=== PATIENT | female | born 1980 | race Caucasian/White ===

== ENCOUNTER → 2020-06-27 | Day surgery (SDC) | payer OTHER ==
[~2020-06-27] MED LIST: ACCUPRIL 5MG TAB5 MG PO; ACID REDUCER20 MG PO; ADMELOG100 UNIT/1 SC; ATARAX25 MG PO; BUSPIRONE HCL15 MG PO; DIPHENHYDR IV; GABAPENTIN800 MG PO; KCL 20 MEQ20 MEQ/101 IV; LOVAZA1 GM PO; ONDANSETRON ODT4 MG IV; PHENERGAN25 M1 IV; PRILOSEC20 MG PO; PROZAC20 MG PO; TRAZODONE 100M100 MG PO; TRESIBA100 UNIT/1 SC; VICTOZA 2-0.6 MG/0.1 IJ; WELLBUTRIN XL150 MG PO; [UNRECOGNIZED DRUG - OTHER] IV
[2020-06-27 08:31] LABS: BASOPHIL 0.4 % (0-2); EOSINOPHIL 1.5 % (0-5); HCT 32.6 % (37.0-47.0); HGB 10.6 g/dl (12.5-16.0); LYMPHOCYTE 29.1 % (15-48); MCH 26.8 pg (25.0-31.0); MCHC 32.5 g/dL (32.0-36.0); MCV 82.5 fL (78.0-100.0); MONOCYTE 7.2 % (0-12); MPV 10.2 fL (6.0-9.5); NEUTROPHIL 61.4 % (41-80); NRBC 0; PLT 298 K/uL (150-400); RBC 3.95 M/uL (4.20-5.40); WBC 9.4 K/uL (4.0-10.5)
[2020-06-27 15:56] LABS: BUN/CREAT RATIO (CALC) 18.6 RATIO; CREATININE 0.59 mg/dL (0.51-0.95)
== END | disposition home or self-care (01) ==
LOC: FAS 07:35
PROVIDERS: Anesthesiology; Oral & Maxillofacial Surgery
DX: K02.63 Dental caries on smooth surface penetrating into pulp (principal); K05.319 Chronic periodontitis, localized, unspecified severity; K21.9 Gastro-esophageal reflux disease without esophagitis; E11.9 Type 2 diabetes mellitus without complications; Z88.6 Allergy status to analgesic agent; Z88.1 Allergy status to other antibiotic agents; Z91.09 Other allergy status, other than to drugs and biological substances; Z20.822 Contact with and (suspected) exposure to COVID-19; Z86.73 Personal history of transient ischemic attack (TIA), and cerebral infarction without residual deficits
CPT/HCPCS: 36415; 71045; 80048; 82962; 85025; 93005; J1100; J1170; J2250; J2370; J2405; J2704; J3010; J7120

== ENCOUNTER → 2021-11-13 | Day surgery (SDC) | payer OTHER ==
[~2021-11-13] VITALS: Ht 162.6 cm; Wt 83.0 kg
[~2021-11-13] MED LIST changes: +CYCLOBENZAPRINE10 MG PO; +ESOMEPRAZOLE MA40 MG PO; +HCTZ12.5 MG PO; +INDERAL20 MG PO; +LANTUS **100 UNITS/ SC; +LIPITOR40 MG PO; +NORVASC5 MG PO
[2021-11-13 11:13] LABS: BASOPHIL 0.7 % (0-2); EOSINOPHIL 0.7 % (0-5); HCT 32.7 % (37.0-47.0); HGB 11.6 g/dl (12.5-16.0); LYMPHOCYTE 19.1 % (15-48); MCHC 35.5 g/dL (32.0-36.0); MCV 93.2 fL (78.0-100.0); MONOCYTE 9.9 % (0-12); NEUTROPHIL 69.3 % (41-80); NRBC 0; PLT 254 K/uL (150-400); RBC 3.51 M/uL (4.20-5.40); RDW 14.3 % (11.5-14.0); WBC 6.8 K/uL (4.0-10.5)
== END | disposition home or self-care (01) ==
LOC: FAS 10:13
PROVIDERS: Oral & Maxillofacial Surgery
DX: K02.9 Dental caries, unspecified (principal); K04.7 Periapical abscess without sinus; E11.9 Type 2 diabetes mellitus without complications; E66.9 Obesity, unspecified
CPT/HCPCS: D7140; D7210; D7310; 36415; 71045; 85025; 93005; J1170; J2250; J2405; J2704; J3010; J7120